=== PATIENT | male | born 1970 | race Caucasian/White ===

== ENCOUNTER 2019-05-07 06:40 | Emergency (ER) | payer MEDICAID, OTHER ==
[~2019-05-07] VITALS: Ht 165.1 cm; Wt 59.1 kg
[2019-05-07 06:52] VITALS: Ht 165.1 cm; Wt 59.1 kg
[2019-05-07] MEDS ORDERED: LORAZEPAM 1 MG TAB PO ONE (07:00)
--- NOTE | 2019-05-07 07:00 | ERD ---
ER Documentation Chief Complaint Chief Complaint seizure with history of seizures HPI Translation services were utilized during this patient's encounter Language: Croatian Source: Video Pleasant 48-year-old male with known history of seizure disorder currently taking Keppra and zonisamide who states compliance with his medication regimen. The patient had a witnessed generalized tonic-clonic seizure with postictal state that is completely resolved upon arrival. The patient denies any significant pain other than feeling generally weak which is normal for his breakthrough seizures. His last seizure was in January. At that time he was having almost weekly seizures. The patient's medications were changed around and he has not had a seizure since then. Today he states that his seizure is no different than baseline seizures. He denies any fevers or chills headache chest pain or shortness of breath. Again he states compliance with medication reg imen. The only thing that was changed in January was that phenobarbital was discontinued. ROS All systems reviewed and are negative except as per history of present illness. Allergies Allergies: Coded Allergies: No Known Allergy (Unverified , 05/07/19) PMhx/Soc History of Surgery: Yes (gallbladder) Anesthesia Reaction: No Hx Neurological Disorder: Yes (seizures) Hx Respiratory Disorders: No Hx Cardiac Disorders: No Hx Psychiatric Problems: No Hx Miscellaneous Medical Probl: No Hx Alcohol Use: No Hx Substance Use: No Hx Tobacco Use: No Smoking Status: Never smoker FmHx Family History: No diabetes Physical Exam Vitals Vital Signs Date Temp Pulse Resp B/P (MAP) Pulse Ox O2 O2 Flow FiO2 Time Delivery Rate 05/07/19 98.4 92 16 145/91 99 06:52 (109) Physical Exam General: Well developed, well nourished, no acute distress Head: Normocephalic, atraumatic. Eyes: Pupils equally reactive, EOM intact ENT: Moist mucous membranes Neck: Supple, no lymphadenopathy Respiratory: Lungs clear bilaterally, no distress Cardiovascular: RRR, no murmurs, rubs, or gallops Abdominal: Soft, non-tender, non-distended, no peritoneal signs : Deferred MSK: No edema, no unilateral swelling, 5/5 strength Neurologic: Alert and oriented, moving all extremities, normal speech, no focal weakness, no cerebellar signs Skin: No rash Psych: Normal mood Results 24 hrs Current Medications Medications Dose Sig/Keyshawn Start Time Status Last (Trade) Ordered Route PRN Stop Time Admin Dose Reason Admin Lorazepam 1 mg ONCE ONCE 05/07/19 (Ativan) PO 07:00 05/07/19 07:01 Procedures/MDM LAB INTERPRETATION: I reviewed the laboratory testing and it shows no evidence of acute process MEDICAL DECISION MAKING: Patient presents with what appears to be a normal breakthrough seizure. This is consistent with his known seizure history. He is compliant with medication regimen. Occasions do not have rapid levels available in the emergency room setting. Again, this is very consistent with normal breakthrough seizure. His last seizure was back in January. He has no signs or symptoms concerning for more serious etiology such as intracranial process, electrolyte ab normality. Given known seizure history and normal breakthrough seizure I do not believe laboratory testing or CT imaging is necessary at this time. The patient was initiated on seizure precautions and given 1 mg p.o. Ativan. He has excellent outpatient follow-up with his neurologist. He needs to discuss his breakthrough seizure with that provider and can be safely discharged. Again he has returned to his baseline with no evidence of complex seizure that warrants hospitalization or further work-up. ER COURSE: * Seizure precautions initiated, patient given p.o. Ativan. He has returned to his baseline he is ambulatory and able to navigate the community. CONSULTATION: None DISPOSITION PLAN: The patient does not have an identifiable emergent medical condition that warrants inpatient hospitalization at this time. The patient is deemed safe for discharge with outpatient follow-up. We discussed follow up with the patient's primary care doctor within 24 to 48 hours as needed. We also discussed return to the emergency room for worsening symptoms or worsening condition. Outpatient referral: Neurology Discharge Medications: None required Departure Diagnosis: Primary Impression: Seizure disorder Condition: Stable Patient Instructions: Seizure, Recurrent [Adult] [facility]errals: [facility] Usted se rosa hecho un examen mdico de control que le indica que no est en shashank condicin que requiera tratamiento urgente en el Departamento de Emergencia. Un estudio ms profundo y el tratamiento de damon condicin pueden esperar sin ningn riesgo hasta que usted sea atendida/o en el consultorio de damon mdico o shashank clnica. Es responsabilidad suya arreglar shashank rosalind para el seguimiento del bhakti. MANEJO DE CONDICIONES NO URGENTES EN EL FUTURO 1) Si usted tiene un mdico de atencin primaria: Usted debera llamar a damon mdico de atencin primaria antes de venir al departamento de emergencia. Despus de las horas de consultorio, damon doctor o damon asociado/a est disponible por telfono. El mdico o enfermero de adrianne en el servicio telefnico puede asesorarle por chau medio para atender el problema, o bhakti contrario se puede programar shashank rosalind. 2) Si usted no tiene un mdico de atencin primaria: Llame al mdico o clnica de referencia que aparece abajo ed las horas de consultorio para hacer shashank rosalind para que le vean. CLINICAS: [facility] [phone] [facility] [phone] [facility]. [facility] [phone] [facility]. [facility] [phone] [facility] [place] [phone] [facility]. [phone] [address] [facility]. [facility] () Usted se rosa hecho un examen mdico de control que le indica que no est en shashank condicin que requiera tratamiento urgente en el Departamento de Emergencia. Un estudio ms profundo y el tratamiento de damon condicin pueden esperar sin ningn riesgo hasta que usted sea atendida/o en el consultorio de damon mdico o shashank clnica. Es responsabilidad suya arreglar shashank rosalind para el seguimiento del bhakti. MANEJO DE CONDICIONES NO URGENTES EN EL FUTURO 1) Si usted tiene un mdico de atencin primaria: Usted debera llamar a damon mdico de atencin primaria antes de venir al departamento de emergencia. Despus de las horas de consultorio, damon doctor o damon asociado/a est disponible por telfono. El mdico o enfermero de adrianne en el servicio telefnico puede asesorarle por chau medio para atender el problema, o bhakti contrario se puede programar shashank rosalind. 2) Si usted no tiene un mdico de atencin primaria: Llame al mdico o condado institucions de referencia que aparece abajo ed las horas de consultorio para hacer shashank rosalind para que le vean. SI USTED NO PUEDE PAGAR PARA DEV UN MEDICO puede ir a: [facility] [address] [place] [address] [facility] [address] [place] [address] [facility] [address] [place] [address] [facility] [address] [place], [place] [id number] Additional Instructions: Please follow-up with your neurologist as regularly scheduled. Return for recurrent seizure. Llame al doctor nombrado abajo (Referral Sources) MAANA y viviane shashank ROSALIND PARA DENTRO DE SHASHANK SEMANA. Dgale a la secretaria que nosotros le instruimos hacer esta rosalind.Avise o llame si damon condicin se empeora antes de la rosalind. NATHALIE QUINONES MD May 07, 2019 07:00
[2019-05-07 08:19] VITALS: BP 103/65; PULSE 69; RESP 16
== END 2019-05-07 08:20 | disposition home or self-care (01) ==
LOC: E/R 06:40
DX: G40.909 Epilepsy, unspecified, not intractable, without status epilepticus (principal); R40.2142 Coma scale, eyes open, spontaneous, at arrival to emergency department; R40.2252 Coma scale, best verbal response, oriented, at arrival to emergency department; R40.2362 Coma scale, best motor response, obeys commands, at arrival to emergency department
CPT/HCPCS: Z7502; Z7610; 99283